=== PATIENT | male | born 1990 | race Caucasian/White ===

== ENCOUNTER 2020-08-09 11:57 | Emergency (ER) | payer OTHER, SELFPAY ==
--- NOTE | 2020-08-09 12:02 | ECG_ITS ---
APPROVED REPORT Exam: Resting ECG HR:121 bpm ECG Measurements Heart Rate 121 AXES ME 142 P 65 QRSd 84 QRS 74 QT 316 T 66 QTc 448 <Conclusion> Sinus tachycardia Possible Left atrial enlargement Cannot rule out Anterior infarct, age undetermined Abnormal ECG Electronically signed by : Gerardo Doss, 08/10/2020 14:59:25
--- NOTE | 2020-08-09 12:04 | XR_ITS ---
PROCEDURE: XR CHEST 2V Referring Doctor: Gunner Cabrera Patient Age:30Y CLINICAL HISTORY: tachycardia, chest discomfort. Smoker and. Vaping COMPARISON: No exams were available for comparison FINDINGS: PA and lateral chest performed with no previous for comparison the lungs appear well expanded and clear with no acute findings. No focal infiltrate or pneumonia... No pneumothorax nor pleural effusion. The heart is normal in size and mediastinal structures unremarkable. Pulmonary vascularity, within normal limits. The lungs are clear without infiltrates, suspicious nodules, or pleural effusions. No acute bony abnormalities. Chest wall unremarkable IMPRESSION: No acute findings. Lungs clear, with no active disease Dictated by: Cuco Blanc MD 08/09/2020 13:41 Cuco Blanc MD in [place] 08/09/2020 13:41
[2020-08-09 12:06] VITALS: BP 137/114; PULSE 115; RESP 17; TEMP 36.8; O2SAT 97; BMI 31.8
--- NOTE | 2020-08-09 12:13 | [facility].EDARPALP ---
ED Disposition Clinical Impression: Palpitations, Anxiety Disposition: Home, Self-Care Condition on Discharge: Good Referrals: Yunior Leija MD [Primary Care Provider] - - Critical Care Critical Care Time: No Attestation: On , the high probability of a clinically significant, sudden or life threatening deterioration of the following system(s) required my full and direct attention, intervention and personal management. The time I documented below is in addition to time spent performing reported procedures but includes the following listed in this critical care notation. Medical Decision Making - Medical Records Medical records reviewed: Yes: I reviewed the patient's medical records. - Jack Inquiry Pt receiving controlled substance: No Vital Signs: 08/09/20 12:06 08/09/20 12:49 08/09/20 13:17 Temperature 98.3 F Temperature Source Oral Pulse Rate [Right Radial] 115 H 110 H 90 Respiratory Rate 17 20 18 Blood Pressure [Right Arm] 137/114 H 140/81 128/78 Blood Pressure Mean [Right Arm] 121 100 94 Blood Pressure Source [Right Arm] Automatic Cuff Automatic Cuff Blood Pressure Position [Right Arm] Sitting Sitting 02 Sat by Pulse Oximetry 97 97 95 Oxygen Delivery Method Room Air Room Air Room Air - Lab Data Lab Results 08/09/20 12:06: VBG pH 7.40, VBG pCO2 34.1 L, VBG pO2 107.7 H, VBG HCO3 20.5 L, VBG Total CO2 21.5 L, VBG O2 Saturation 98.0 H, VBG Base Excess -4.4 L 08/09/20 12:10: WBC 13.7 H, RBC 5.09, Hgb 17.0, Hct 48.2, MCV 94.6 H, MCH 33.4 H, MCHC 35.3, RDW 13.5, Plt Count 305, MPV 8.1, Neut % (Auto) 81.3 H, Lymph % (Auto) 13.3, Williams % (Auto) 3.8, Eos % (Auto) 1.2, Baso % (Auto) 0.5, Neut # (Auto) 11.1 H, Lymph # (Auto) 1.8, Williams # (Auto) 0.5, Eos # (Auto) 0.2, Baso # (Auto) 0.1 08/09/20 12:10: Sodium 139, Potassium 3.7, Chloride 102, Carbon Dioxide 23, Anion Gap 17.7 H, BUN 10, Creatinine 0.70, Estimated Creat Clear 257, Estimated GFR 134, Est GFR ( Amer) 162, Glucose 153 H, Calcium 10.0, Total Bilirubin 0.9, AST 32, ALT 27, Alkaline Phosphatase 77, Troponin I < 0.01, NT-Pro-B Natriuret Pep 19.8, Total Protein 8.3 H, Albumin 5.3 H, Globulin 3.0, Albumin/Globulin Ratio 1.8, TSH 1.47 Result diagrams: 08/09/20 12:10 08/09/20 12:10 Orders (Tests/Meds): ORDERS Category Date Time Status XR chest 2V Stat Exams 08/09/20 12:04 Taken Drug Screen,Urine Stat Lab 08/09/20 13:20 Received Troponin I Q3H Lab 08/09/20 15:15 Ordered Troponin I Q3H Lab 08/09/20 18:15 Ordered Urinalysis and Microscopic Stat Lab 08/09/20 13:20 Received - Radiology Data #1 Image(s): Chest Image Reviewed: Yes I reviewed the patient's radiology image Preliminary Findings: Normal/NAD - ECG Data Tracing #1 ECG normal with no acute: arrhythmias, ischemia, conduction abnormalities, chamber hypertrophy Normal Sinus Rhythm: No (HR 121bpm) Arrhythmias present: sinus tach Arrhythmia/Palpitations HPI - General Chief Complaint: Arrhythmia/Palpitations Stated Complaint: fast heart rate Time Seen by Provider: 08/09/20 12:10 Mode of Arrival: Ambulatory Source of Information: Patient Limitations: No Limitations - History of Present Illness HPI narrative: This is a 30-year-old male that presents with intermittent tachycardia and palpitations x2 weeks. Timing and duration is variable. No noted fever, chills, cough, congestion, chest pain, dyspnea, or orthopnea. Symptoms moderate intensity without palliating or provoking measures. - Related Data Previous Rx's Medication Instructions Recorded Dicyclomine HCl [Bentyl 10mg 10 mg PO TID PRN #15 cap 10/31/19 capsule] Ondansetron [Zofran 4mg ODT] 4 mg PO Q8HP PRN #20 tab.rapdis 10/31/19 Allergies Allergy/AdvReac Type Severity Reaction Status Date / Time No Known Allergies Allergy Verified 08/09/20 12:12 [facility] History - Hepatitis A Screen Drug use history?: No High risk sexual behaviors?: No History of sexua
[2020-08-09 12:21] LABS: Basophils # 0.1 K/mm3 (0-0.2); Basophils % 0.5 % (0.1-2.0); Eosinophils # 0.2 K/mm3 (0.0-0.4); Eosinophils % 1.2 % (0.1-12.0); Hematocrit 48.2 % (42.0-52.0); Lymphocytes # 1.8 K/mm3 (0.7-4.5); Lymphocytes % 13.3 % (10-50); Mean Corpuscular HGB Conc 35.3 g/dL (31.8-35.4); Mean Corpuscular Hemoglobin 33.4 pg (27.0-31.2); Mean Corpuscular Volume 94.6 fl (80-94); Mean Platelet Volume 8.1 fl (7.4-10.4); Monocytes # 0.5 K/mm3 (0.1-1.0); Monocytes % 3.8 % (1.7-9.3); Neutrophils # 11.1 K/mm3 (1.8-7.8); Neutrophils % 81.3 % (37.0-80.0); Platelet Count 305 K/mm3 (142-424); Red Blood Count 5.09 M/mm3 (4.60-6.20); Red Cell Distribution Width 13.5 % (11.5-17.5); White Blood Count 13.7 K/mm3 (4.8-10.8)
[2020-08-09 12:31] LABS: Chloride 102 mmol/L (98-107); Potassium 3.7 mmoL/L (3.5-5.1); Sodium 139 mmol/L (136-145)
[2020-08-09 12:33] LABS: Blood Urea Nitrogen 10 mg/dl (9-20); Creatinine Clearance Estimated 257 mL/min (50-200); Estimated Glomerular Filt Rate 134 ml/min (>60); GFR (African American) 162 ML/MIN (>60)
[2020-08-09 12:34] LABS: Alanine Aminotransferase 27 U/L (12-78); Albumin Level 5.3 g/dl (3.5-5.0); Albumin/Globulin Ratio 1.8 (1.1-1.8); Alkaline Phosphatase 77 U/L (38-126); Anion Gap 17.7 mEq/L (5-15); Aspartate Amino Transferase 32 U/L (17-59); Bilirubin,Total 0.9 mg/dl (0.2-1.3); Carbon Dioxide 23 mmol/L (22.0-30.0); Glucose 153 mg/dl (74-100); Total Protein,Serum 8.3 g/dl (6.3-8.2)
[2020-08-09 12:43] LABS: NT Pro Brain Natriuretic Pep. 19.8 pg/mL (0-125)
[2020-08-09 12:48] LABS: Troponin I < 0.01 ng/ml (0.00-0.034)
[2020-08-09 12:49] VITALS: BP 140/81; PULSE 110; RESP 20; O2SAT 97
[2020-08-09 13:05] LABS: Thyroid Stimulating Hormone 1.47 uIU/mL (0.465-4.68)
[2020-08-09 13:17] VITALS: BP 128/78; PULSE 90; RESP 18; O2SAT 95
[2020-08-09 13:31] LABS: VBG Base Excess -4.4 mmol/L (-2.4-2.3); VBG HCO3 20.5 mmol/L (23-30); VBG PCO2 34.1 mmol/L (35-51); VBG PO2 107.7 mmol/L (28-40); VBG Total CO2 21.5 mmol/L (23-27)
[2020-08-09 13:35] LABS: Microscopic, Urine URINE MICROSCOPIC (MICROSCOPIC)
[2020-08-09 13:41] LABS: Appearance,Urine CLEAR (Clear); Blood, Urine Negative (Negative); Color,Urine YELLOW (Yellow); Glucose,Urine (UA) Negative (Negative); Ketones,Urine 3+ (Negative); Leukocyte Esterase,Urine Negative (Negative); Nitrate,Urine Negative (Negative); Protein,Urine 1+ (Negative); Specific Gravity, Urine >= 1.030 (1.005-1.030)
[2020-08-09 13:52] LABS: Amorphous Sediment,Urine 1+ /lpf; Benzodiazepines Screen,Urine Negative ng/ml (<200); Bilirubin,Urine Negative (Negative); Mucus,Urine 1+ /lpf; RBC,Urine Occasional #/hpf (0-3); WBC,Urine Occasional #/hpf (0-3)
[2020-08-09 13:53] LABS: Amphetamine/Metha Screen,Urine Negative ng/ml (<1000); Barbiturates Screen,Urine Negative ng/ml (<200)
[2020-08-09 13:54] LABS: Cannabinoid Screen,Urine Positive ng/ml (<50); Cocaine Screen,Urine Negative ng/ml (<300)
[2020-08-09 13:55] LABS: Methadone Screen,Urine Negative ng/ml (<300)
[2020-08-09 13:56] LABS: Opiate Screen,Urine Negative ng/ml (<300); Phencyclidine Screen,Urine Negative ng/ml (<25)
[2020-08-09 14:15] VITALS: BP 130/78; PULSE 105; RESP 15; TEMP 36.8; O2SAT 97
== END 2020-08-09 14:19 | disposition home or self-care (01) ==
PROVIDERS: Emergency Provider Emergency Medicine; PCP Family Medicine
DX: F41.9 Anxiety disorder, unspecified (principal); R00.2 Palpitations; F17.210 Nicotine dependence, cigarettes, uncomplicated
CPT/HCPCS: 71046; 80053; 80305; 81001; 82803; 83880; 84443; 84484; 85025; 93005; 93225; 93226; 99284

== ENCOUNTER 2020-10-01 13:55 | Emergency (ER) | payer OTHER, SELFPAY ==
[2020-10-01 14:00] VITALS: BP 123/70; PULSE 95; RESP 16; TEMP 36.8; O2SAT 98; BMI 32.1
--- NOTE | 2020-10-01 14:11 | ECG_ITS ---
APPROVED REPORT Exam: Resting ECG HR:92 bpm ECG Measurements Heart Rate 92 AXES [place] 162 P 46 QRSd 90 QRS 59 QT 358 T 54 QTc 442 Conclusion Normal sinus rhythm Normal ECG Electronically signed by : Selvin Key, 10/03/2020 18:18:06
[2020-10-01 14:25] VITALS: BP 119/68; PULSE 88; RESP 17; O2SAT 98
--- NOTE | 2020-10-01 14:44 | [facility].EDGENADL ---
ED Disposition Clinical Impression: Palpitations, Anxiety Disposition: Home, Self-Care Condition on Discharge: Good Instructions: DI for Palpitations Referrals: Yunior Leija MD [Primary Care Provider] - - Critical Care Critical Care Time: No Attestation: On 10/01/20, the high probability of a clinically significant, sudden or life threatening deterioration of the following system(s) required my full and direct attention, intervention and personal management. The time I documented below is in addition to time spent performing reported procedures but includes the following listed in this critical care notation. Medical Decision Making - Medical Records Medical records reviewed: Yes: I reviewed the patient's medical records. - Jack Inquiry Pt receiving controlled substance: No Vital Signs: 10/01/20 14:00 10/01/20 14:25 10/01/20 15:00 Temperature 98.2 F Temperature Source Oral Pulse Rate [Left Radial] 95 H 88 83 Respiratory Rate 16 17 17 Blood Pressure [Left Arm] 123/70 119/68 120/68 Blood Pressure Mean [Left Arm] 87 85 85 Blood Pressure Source [Left Arm] Automatic Cuff Blood Pressure Position [Left Arm] Sitting 02 Sat by Pulse Oximetry 98 98 97 Oxygen Delivery Method Room Air 10/01/20 15:28 Temperature Temperature Source Pulse Rate [Left Radial] 84 Respiratory Rate 17 Blood Pressure [Left Arm] 124/68 Blood Pressure Mean [Left Arm] 86 Blood Pressure Source [Left Arm] Blood Pressure Position [Left Arm] 02 Sat by Pulse Oximetry 97 Oxygen Delivery Method - Lab Data Lab Results 10/01/20 14:37: WBC 10.8, RBC 4.63, Hgb 14.6, Hct 44.3, MCV 95.7 H, MCH 31.6 H, MCHC 33.1, RDW 13.0, Plt Count 242, MPV 7.9, Neut % (Auto) 74.2, Lymph % (Auto) 16.5, Tompkins % (Auto) 6.3, Eos % (Auto) 2.4, Baso % (Auto) 0.7, Neut # (Auto) 8.0 H, Lymph # (Auto) 1.8, Tompkins # (Auto) 0.7, Eos # (Auto) 0.3, Baso # (Auto) 0.1 10/01/20 14:37: Sodium 141, Potassium 3.9, Chloride 104, Carbon Dioxide 29, Anion Gap 11.9, BUN 15, Creatinine 0.80, Estimated Creat Clear 220, Estimated GFR 115, Est GFR ( Amer) 139, Glucose 111 H, Calcium 9.2, Total Bilirubin 0.5, AST 96 H, ALT 62, Alkaline Phosphatase 67, Troponin I < 0.01, Total Protein 7.3, Albumin 4.8, Globulin 2.5, Albumin/Globulin Ratio 1.9 H Result diagrams: 10/01/20 14:37 10/01/20 14:37 Orders (Tests/Meds): ORDERS Category Date Time Status Comprehensive Metabolic Panel Stat Lab 10/01/20 14:37 Results TSH [Thyroid Stimulating Hormone] Stat Lab 10/01/20 14:37 Results Trop I [Troponin I] Stat Lab 10/01/20 14:37 Results Troponin I Q3H Lab 10/01/20 17:30 Ordered Troponin I Q3H Lab 10/01/20 20:30 Ordered - Radiology Data #1 Image(s): Chest Image Reviewed: Yes I reviewed the patient's radiology results, Yes I reviewed the patient's radiology image, Yes I have reviewed radiologist's interpretation Preliminary Findings: Normal/NAD - ECG Data Tracing #1 Normal ventricular rate of 92 bpm. Normal VA interval of 160 ms. Normal QTC. Found to rotation was normal sinus rhythm, normal EKG. ECG initial impression date: 10/01/20 ECG initial impression time: 14:13 - Reevaluation(s) Time: 15:53 Reevaluation #1: On reevaluation, patient is feeling better. Negative troponin. Hemodynamically stable. Patient is to follow-up with PCP. Given strict return precautions. Verbalized understanding. Medical Decision Narrative: 30-year-old male presented to the emergency department with palpitations. Patient is hemodynamically stable at this time. Low risk for acute coronary syndrome. Work-up initiated. PERC negative General Adult HPI - General Chief complaint: Recheck/Abnormal Lab/Rx Stated complaint: High HR Time Seen by Provider: 10/01/20 14:05 Mode of Arrival: Ambulatory Limitations: No Limitations Description of Symptoms (Recalled from ER Triage Doc. by RN): Pt reports he was checking his heart rate on an shreyas on his phone, state
[2020-10-01 14:48] LABS: Basophils # 0.1 K/mm3 (0-0.2); Basophils % 0.7 % (0.1-2.0); Eosinophils # 0.3 K/mm3 (0.0-0.4); Eosinophils % 2.4 % (0.1-12.0); Hematocrit 44.3 % (42.0-52.0); Hemoglobin 14.6 g/dL (14.1-18.0); Lymphocytes # 1.8 K/mm3 (0.7-4.5); Lymphocytes % 16.5 % (10-50); Mean Corpuscular HGB Conc 33.1 g/dL (31.8-35.4); Mean Corpuscular Hemoglobin 31.6 pg (27.0-31.2); Mean Corpuscular Volume 95.7 fl (80-94); Mean Platelet Volume 7.9 fl (7.4-10.4); Monocytes # 0.7 K/mm3 (0.1-1.0); Monocytes % 6.3 % (1.7-9.3); Neutrophils % 74.2 % (37.0-80.0); Platelet Count 242 K/mm3 (142-424); Red Blood Count 4.63 M/mm3 (4.60-6.20); White Blood Count 10.8 K/mm3 (4.8-10.8)
[2020-10-01 14:58] LABS: Chloride 104 mmol/L (98-107); Potassium 3.9 mmoL/L (3.5-5.1); Sodium 141 mmol/L (136-145)
--- NOTE | 2020-10-01 14:59 | XR_ITS ---
PROCEDURE: XR CHEST PORTABLE CLINICAL HISTORY: cough COMPARISON: CR XR CHEST 2V from 08/09/2020 FINDINGS: The cardiomediastinal silhouette and pulmonary vascularity are within normal limits. The lungs are clear without infiltrates, suspicious nodules, or pleural effusions. No acute bony abnormalities. IMPRESSION: No acute findings. Dictated by: Artur Cooper MD 10/01/2020 15:32 Artur Cooper MD in [place] 10/01/2020 15:32
[2020-10-01 15:00] VITALS: BP 120/68; PULSE 83; RESP 17; O2SAT 97
[2020-10-01 15:01] LABS: Alanine Aminotransferase 62 U/L (12-78); Albumin Level 4.8 g/dl (3.5-5.0); Albumin/Globulin Ratio 1.9 (1.1-1.8); Alkaline Phosphatase 67 U/L (38-126); Anion Gap 11.9 mEq/L (5-15); Aspartate Amino Transferase 96 U/L (17-59); Bilirubin,Total 0.5 mg/dl (0.2-1.3); Blood Urea Nitrogen 15 mg/dl (9-20); Calcium 9.2 mg/dl (8.4-10.2); Carbon Dioxide 29 mmol/L (22.0-30.0); Creatinine Clearance Estimated 220 mL/min (50-200); Estimated Glomerular Filt Rate 115 ml/min (>60); GFR (African American) 139 ML/MIN (>60); Globulin 2.5 g/dL (1.3-3.2); Glucose 111 mg/dl (74-100); Total Protein,Serum 7.3 g/dl (6.3-8.2)
[2020-10-01 15:19] LABS: Troponin I < 0.01 ng/ml (0.00-0.034)
[2020-10-01 15:28] VITALS: BP 124/68; PULSE 84; RESP 17; O2SAT 97
[2020-10-01 15:32] LABS: Thyroid Stimulating Hormone 0.95 uIU/mL (0.465-4.68)
[2020-10-01 16:05] VITALS: BP 129/69; PULSE 84; RESP 17; TEMP 36.8; O2SAT 97
== END 2020-10-01 16:06 | disposition home or self-care (01) ==
PROVIDERS: Emergency Provider Emergency Medicine; PCP Family Medicine
DX: R00.2 Palpitations (principal); F41.9 Anxiety disorder, unspecified; F17.290 Nicotine dependence, other tobacco product, uncomplicated
CPT/HCPCS: 71045; 80053; 84443; 84484; 85025; 93005; 99283